=== PATIENT | male | born 1985 | race African-American/Black ===

== ENCOUNTER 2020-04-27 00:46 | Emergency (ER) | payer OTHER ==
[~2020-04-27] VITALS: Ht 175.3 cm; Wt 100.0 kg
[2020-04-27] MEDS ORDERED: KETOROLAC 30MG/ML VIAL IV STA (01:43)
[2020-04-27] MEDS ORDERED: ONDANSETRON HCL 4MG/2ML INJ IV STA (01:43)
[2020-04-27] MEDS ORDERED: LOPERAMIDE 2MG/15ML UDC PO ONE (01:45)
[2020-04-27] MEDS ORDERED: SODIUM CHLORIDE 0.9% 1,000 ML IV ONE (01:45)
[2020-04-27 02:31] LABS: BASOPHILS % 0.6 % (0.0-2.0); EOSINOPHILS % 0.7 % (0.0-5.0); HEMOGLOBIN. 15.6 g/dL (14.0-18.0); LYMPHOCYTES % 18.8 % (20.0-50.0); MEAN CORPUSCULAR HEMOGLOBIN 29.3 pg (28.0-32.0); MEAN CORPUSCULAR VOLUME 86.3 fL (80.0-94.0); MEAN PLATELET VOLUME 7.7 fl (7.4-10.4); MONOCYTES % 5.7 % (2.0-8.0); NEUTROPHILS % 74.2 % (40.0-76.0); PLATELET 232 x1000/uL (130-400); RED BLOOD CELL COUNT 5.33 mill/uL (4.7-6.1)
[2020-04-27 02:38] LABS: CHLORIDE 101 mEq/L (98-107)
[2020-04-27 02:55] LABS: PROTHROMBIN TIME 10.8 sec (9.6-11.0)
[2020-04-27 04:28] VITALS: BP 133/76
== END 2020-04-27 04:31 | disposition home or self-care (01) ==
LOC: ER 00:46
DX: R10.84 Generalized abdominal pain (principal); R11.2 Nausea with vomiting, unspecified; R03.0 Elevated blood-pressure reading, without diagnosis of hypertension; K76.0 Fatty (change of) liver, not elsewhere classified; N62 Hypertrophy of breast
CPT/HCPCS: 36415; 74176; 80053; 83690; 84484; 85025; 85610; 96361; 96374; 96375; 99284; J1885; J2405; J7030